=== PATIENT | female | born 1990 | race Caucasian/White ===

== ENCOUNTER 2016-09-24 04:36 | Emergency (ER) | payer OTHER ==
[~2016-09-24 04:36] MED LIST: AMOXICILLIN PO; AUGMENTIN875 MG PO; BACTRIM DS TABL1 TA1 PO; BACTRIM DS TABL1 TAB PO; DIFLUCAN PO; DOXYCYCLINE150 MG PO; FLAGYL PO; IBUPROFEN PO; KEFLEX PO; KETOPROFEN PO; NO MEDICATIONS; PYRIDIUM PO; VOLTAREN75 MG PO
[2016-09-24 05:15] LABS: INFLUENZA A NEG (NEG); INFLUENZA B NEG (NEG)
== END 2016-09-24 05:55 | disposition home or self-care (01) ==
LOC: CED 04:36
PROVIDERS: Emergency Medicine
DX: J06.9 Acute upper respiratory infection, unspecified (principal); K21.9 Gastro-esophageal reflux disease without esophagitis; F17.210 Nicotine dependence, cigarettes, uncomplicated
CPT/HCPCS: 87651; 87804; 99283

== ENCOUNTER 2017-01-06 12:55 | Emergency (ER) | payer OTHER ==
--- NOTE | ~2017-01-06 | EKG ---
PATIENT: ESTEPHANIA GARCIA UNIT #: [id number] Ventricular Rate: 83 BPM Atrial Rate: 83 BPM P-R Interval: 200 ms QRS Duration: 102 ms Q-T Interval: 420 ms QTC Calculation(Bezet): 493 ms P Lindsay: 42 degrees Calculated R Lindsay: 34 degrees Calculated T Lindsay: 34 degrees Diagnosis Line: Normal sinus rhythm Diagnosis Line: Prolonged QT Diagnosis Line: Abnormal ECG Diagnosis Line: When compared with ECG of 28-MAR-2016 06:57, Diagnosis Line: Nonspecific T wave abnormality, improved in Diagnosis Line: Inferior leads Diagnosis Line: Nonspecific T wave abnormality no longer evident Diagnosis Line: in Lateral leads Diagnosis Line: Confirmed by ANAYELI MEDELLIN MD ([id number]) on Diagnosis Line: 01/07/2017 8:00:54 AM INTERPRETING MD: LACIE COLEMAN
--- NOTE | ~2017-01-06 | CR72 ---
[facility] A Service of [facility] & [facility] RADIOLOGY TEXT RESULTS PATIENT: ESTEPHANIA GARCIA LOCATION: [facility] : [birth year] UNIT #: [id number] AGE: [address]: Ana Felton MD SEX: F ORDER DR: [id number] [facility] [address] [place], [place] [address] [id number] E MR#: [id number] Acc #: [id number] NAME: ESTEPHANIA GARCIA : 1990 SEX: F STUDY DATE/TIME: 01/06/2017 15:55 UNIT: [facility] ROOM: STUDY DESCRIPTION: CR Chest Single View Portable Attending Physician: Ana Felton M.D. Ordering Physician: Anthony Ray M.D. Primary Care Physician: Yemi Caraballo M.D. MEDICAL IMAGING REPORT This report is preliminary unless electronic signature is present EXAM Portable chest, 01/06/2017, [facility]. HISTORY 26-year-old male with lower leg edema x2 days. COMPARISON Chest 07/10/2016 FINDINGS AP portable upright chest demonstrates normal cardiac size and configuration. Hilar structures and mediastinal contours are normal. Bilateral lungs are expanded and clear. Costophrenic angles are clear. Bony thorax appears normal. Large body habitus noted. IMPRESSION Negative chest. Dictated by... Manjeet Sorensen M.D. THIS IS AN ELECTRONICALLY VERIFIED REPORT Manjeet Sorensen M.D. at 01/07/2017 8:11 AM Filiberto TD: 01/06/2017 18:28 JOB #: [id number] MEDICAL IMAGING REPORT Page 1 of 1 COPY
[2017-01-06 17:05] LABS: BASOPHIL% 0.7 % (0-2.5); DIFF IND NO; EOSINOPHIL# 0.2 X10e3 (0-0.7); EOSINOPHIL% 3.6 % (0.0-7.0); HEMATOCRIT 35.5 % (35.0-45.0); HEMOGLOBIN 11.7 gm/dL (12.0-16.0); LYMPHOCYTE% 37.7 % (17.0-45.0); MEAN CELL VOLUME 87.9 FL (83-96); MEAN CORPUSCULAR HEMOGLOBIN 29.1 PG (28-34); MEAN CORPUSCULAR HGB CONC 33.1 g/dL (30-36); MEAN PLATELET VOLUME 8.2 FL (6.5-11.5); MONOCYTE# 0.4 X10e3 (0-1.0); MONOCYTE% 7.9 % (3.0-12.0); NEUTROPHIL# 2.7 X10e3 (1.5-7.1); NEUTROPHIL% 50.1 % (40-75); PLATELET COUNT 213 X10e3 (140-420); RED BLOOD COUNT 4.04 X10e (3.90-5.30); RED CELL DISTRIBUTION WIDTH 13.3 % (11.0-15.5); WHITE BLOOD COUNT 5.4 X10e3 (4.0-10.5)
[2017-01-06 17:09] LABS: POC - CKMB 6.4 ng/mL (0.0-7.9); POC - TROPONIN <0.05 ng/mL (<=0.05)
[2017-01-06 17:18] LABS: ALBUMIN SERUM 3.9 g/dL (3.5-5.0); BILIRUBIN, DIRECT 0.2 mg/dL (0.0-0.2); BILIRUBIN,TOTAL 1.2 mg/dL (0.2-2.0); BUN/CREATININE RATIO 12.22; CALCIUM SERUM 8.7 mg/dL (8.4-10.2); CREATININE SERUM 0.9 mg/dL (0.6-1.4); GLOM FILT RATE Estimated 88.9 mL/min (>60); POTASSIUM 3.3 mmol/L (3.5-5.1)
[2017-01-06 18:36] LABS: URINE SOURCE CLEAN CATCH
[2017-01-06 18:42] LABS: URINE APPEARANCE CLEAR; URINE BILIRUBIN NEG (NEG); URINE BLOOD NEG (NEG); URINE COLOR YELLOW; URINE GLUCOSE NEG (NEG); URINE KETONE NEG (NEG); URINE LEUKOCYTE ESTERASE NEG (NEG); URINE NITRATE NEG (NEG); URINE PH 5.5 (5-8); URINE PROTEIN NEG (NEG); URINE SPECIFIC GRAVITY 1.007 (1.003-1.035); URINE UROBILINOGEN 0.2 MG/DL (NEG)
[2017-01-06 18:46] LABS: CULTURE INDICATED? NO
[2017-01-06 18:52] LABS: AMPHETAMINE POS (NEG); BARBITURATES NEG (NEG); BENZODIAZEPINES POS (NEG); COCAINE NEG (NEG); MARIJUANA NEG (NEG); OPIATES NEG (NEG); TRICYCLIC ANTIDEPRESSANTS NEG (NEG); U METHADONE NEG (NEG)
== END 2017-01-06 19:05 | disposition home or self-care (01) ==
LOC: CED 12:55
PROVIDERS: Emergency Medicine; Student in an Organized Health Care Education/Training Program
DX: R60.0 Localized edema (principal); I10 Essential (primary) hypertension; F17.200 Nicotine dependence, unspecified, uncomplicated
CPT/HCPCS: 36415; 71010; 80048; 80076; 80307; 81003; 82550; 82553; 83880; 84484; 85025; 93005; 99284